=== PATIENT | female | born 1950 | race Caucasian/White ===

== ENCOUNTER 2023-10-27 14:20 | Emergency (ER) | payer MEDICARE, MEDICAID, SELFPAY ==
[2023-10-27] VITALS (9 sets, daily range): BP systolic 128–140; BP diastolic 63–72; PULSE 68–79; RESP 14–18; TEMP 36.4; O2SAT 92–93; BMI 27.4
--- NOTE | 2023-10-27 14:50 | DI.RAD.S_ITS ---
PROCEDURE: XR ANKLE LT MIN 3V INDICATIONS: fall/ pain/ no deformity TECHNIQUE: 3 views of the ankle were acquired. COMPARISON: None. FINDINGS: Bones: Minimally displaced avulsion fracture of the distal fibular tip. Ankle mortise is normally aligned on nonweightbearing view. No suspicious bony lesions. Soft tissues: No tibiotalar joint effusion. Achilles tendon appears normal. Soft tissue swelling overlying the lateral malleolus. Vascular calcifications. Small plantar calcaneal enthesophyte. IMPRESSION: Minimally displaced avulsion fracture of the distal fibular tip with overlying soft tissue swelling. Dictated by: Fausto Jones M.D. on 10/27/2023 at 14:46 Approved by: Fausto Jones M.D. on 10/27/2023 at 14:47
--- NOTE | 2023-10-27 14:50 | DI.RAD.S_ITS ---
PROCEDURE: XR KNEE LT 3V INDICATIONS: fall/ pain/ no deformity TECHNIQUE: 3 views of the knee were acquired. COMPARISON: None. FINDINGS: Bones: No fractures or dislocations. Joint spaces are relatively maintained. No suspicious bony lesions. Normal patellar alignment on the sunrise view. Soft tissues: No joint effusion. No suspicious soft tissue calcifications. IMPRESSION: No acute bony abnormality or significant effusion. If clinical symptoms persist, consider repeat radiograph in 10-14 days versus cross-sectional imaging. Dictated by: Fausto Jones M.D. on 10/27/2023 at 14:47 Approved by: Fausto Jones M.D. on 10/27/2023 at 14:48
--- NOTE | 2023-10-27 16:21 | ED_ITS ---
HPI - Extremity Injury (Lower) General Chief Complaint: Extremity Injury, Lower Stated Complaint: fall Time Seen by Provider: 10/27/23 16:21 Source: patient and EMS Mode of arrival: EMS (air) Limitations: no limitations History of Present Illness HPI Narrative: 72-year-old female history of coronary artery disease with cardiac stents, bipolar on lithium on aspirin daily. Patient was walking her grandson's dog wh en she stepped in a pothole everting her ankle. She was able to walk sort of hobbled over but has not had increasing swelling over the lateral malleolus and pain. Patient states little bit of tingling in her foot initially but that is improved. States she did fell onto her knees. States it was on grass denies any cuts or abrasions. Denies hitting her head no neck or back pain, no chest pain or shortness of breath no GI or urinary symptoms. Patient states she was transported by airlift her see fentanyl EN route. She does not wish to have any more narcotics. Patient she took a Tylenol 325 mg immediately afterwards. Patient has allergies to prednisone, sulfa. Denies surgeries besides prior cardiac stents. Patient lives on [address]. No regular tobacco, alcohol or recreational drugs. Related Data Home Medications Medication Instructions Recorded Confirmed cholecalciferol (vitamin D3) 25 1,000 iu PO Q DAY ##0 05/10/11 mcg (1,000 unit) tablet (Vitamin D3) ASPIRIN (Aspirin EC) 81 mg PO Q DAY ##0 11/22/11 Allergies Allergy/AdvReac Type Severity Reaction Status Date / Time prednisone Allergy Verified 10/27/23 14:31 Sulfa (Sulfonamide Allergy Verified 10/27/23 14:31 Antibiotics) antibiotics Allergy Uncoded 10/27/23 14:35 Review of Systems Review of Systems ROS Unobtainable: All systems reviewed & are unremarkable except as noted in HPI and below Patient History Social History Smoking Status: Never smoker Smoking Status: Never smoker Substance Use Type: does not use Exam Narrative Exam Narrative: GENERAL: Alert and oriented x three, female in mild distress HEENT: Head normocephalic, atraumatic, EOMI, pupils reactive, face symmetric, moist mucous membranes NECK: Supple, full range of motion CARDIOVASCULAR: Regular rate and rhythm without murmurs, rubs or gallops. RESPIRATORY: Breath sounds equal bilaterally, no wheezes rales or rhonchi. ABDOMEN: Soft, nontender. Normoactive bowel sounds all 4 quadrants. No guarding or rebound, rigidity, no mass : No CVA tenderness EXTREMITIES: Normal range of motion with the exception of left ankle patient has swelling over the lateral malleolus as well as tenderness. There is a small amount of ecchymosis. Patient does not have any tenderness over the medial malleolus no tenderness over the foot calcaneus or toes. Nontender over the proximal leg or knee. Patient has good range of motion of the knee as well as toes. Can flex extend but is uncomfortable at the ankle. No obvious joint laxity. 2+ dorsalis pedis. Cap refill less than 2 seconds in all 5 toes. NEUROLOGICAL: Cranial nerves II through XII grossly intact. Moving all extremities SKIN: Warm, dry, no petechiae, no rashes or lesions. Initial Vital Signs Initial Vital Signs: Vital Signs Blood Pressure 140/72 10/27/23 14:25 Course Orders Ordered: ED Orders 10/27/23 14:50 XR ankle LT min 3V Stat XR knee LT 3V Stat Discontinued Medications Acetaminophen (Acetaminophen 325 Mg Tablet) 325 mg PO NOW ONE Stop: 10/27/23 16:40 Last Admin: 10/27/23 16:51 Dose: 325 mg Documented By: SB Vital Signs Vital signs: Vital Signs - 8 hr 10/27/23 14:25 10/27/23 14:26 10/27/23 14:30 Temperature Pulse Rate 69 72 Respiratory Rate Blood Pressure 140/72 Pulse Oximetry 92 92 Oxygen Delivery Method 10/27/23 14:30 10/27/23 14:31 10/27/23 15:00 Temperature 97.6 F Pulse Rate 68 78 Respiratory Rate 18 Blood Pressure 128/63 140/72 Pulse Oximetry 93 92 Oxygen Delivery Method Room Air 10/27/23 15:30 10/27/23 16:00 10/27/23 16:30 Temperature Pulse Rate 71 79 74 Respiratory Rate Blood Pressure Pulse Oximetry 93 93 93 Oxygen Delivery Method 10/27/23 17:03 Temperature Pulse Rate 78 Respiratory Rate 14 Blood Pressure 136/72 Pulse Oximetry 92 Oxygen Delivery Method Room Air MDM - Extremity Injury (Lower) Imaging Data Extremity x-ray #1: Radiologist's Impression: Ana Rm??72??F??1950 ? Allergy/Adv: prednisone, Sulfa (Sulfonamide Antibiotics), [antibiotics] (More??) Close Knee X-Ray (Signed) Fausto Jones - 10/27/23 Ankle X-Ray (Signed) Fausto Jones - 10/27/23 Launch?[address] [address] XRay Report Signed Patient: Ana Rm MR#: [id number] : 1950 Acct:[id number] Age/Sex: 72 / F Date of Service: 10/27/23 Loc: ED Accession Number: [id number] Procedure: XR ankle LT min 3V Ordering Provider: Patito Lilly D.O. PROCEDURE: XR ANKLE LT MIN 3V INDICATIONS: fall/ pain/ no deformity TECHNIQUE: 3 views of the ankle were acquired. COMPARISON: None. FINDINGS: Bones: Minimally displaced avulsion fracture of the distal fibular tip. Ankle mortise is normally aligned on nonweightbearing view. No suspicious bony lesions. Soft tissues: No tibiotalar joint effusion. Achilles tendon appears normal. Soft tissue swelling overlying the lateral malleolus. Vascular calcifications. Small plantar calcaneal enthesophyte. IMPRESSION: Minimally displaced avulsion fracture of the distal fibular tip with overlying soft tissue swelling. Dictated by: Fausto Jones M.D. on 10/27/2023 at 14:46 Approved by: Fausto Jones M.D. on 10/27/2023 at 14:47 Extremity x-ray #2: Radiologist's Impression: Ana Rm??72??F??1950 ? Allergy/Adv: prednisone, Sulfa (Sulfonamide Antibiotics), [antibiotics] (More??) Close Knee X-Ray (Signed) Fausot Jones - 10/27/23 Ankle X-Ray (Signed) Fausto Jones - 10/27/23 Launch?[address] [address] XRay Report Signed Patient: Ana Rm MR#: [id number] : 1950 Acct:[id number] Age/Sex: 72 / F Date of Service: 10/27/23 Loc: ED Accession Number: [id number] Procedure: XR knee LT 3V Ordering Provider: Patito Lilly D.O. PROCEDURE: XR KNEE LT 3V INDICATIONS: fall/ pain/ no deformity TECHNIQUE: 3 views of the knee were acquired. COMPARISON: None. FINDINGS: Bones: No fractures or dislocations. Joint spaces are relatively maintained. No suspicious bony lesions. Normal patellar alignment on the sunrise view. Soft tissues: No joint effusion. No suspicious soft tissue calcifications. IMPRESSION: No acute bony abnormality or significant effusion. If clinical symptoms persist, consider repeat radiograph in 10-14 days versus cross-sectional imaging. Dictated by: Fausto Jones M.D. on 10/27/2023 at 14:47 Approved by: Fausto Jones M.D. on 10/27/2023 at 14:48 [facility] Narrative Medical decision making narrative: 72-year-old female with eversion injury, tenderness over the lateral malleolus with swelling and discomfort with weight-bearing. Patient meets [place] ankle rules for x-ray imaging. Patient describes some pain in the knee but is nontender on examination. X-ray of the knee shows no acute change. X-ray of the ankle shows minimally displaced avulsion fracture of the distal fibular tip ankle mortise aligned normally on nonweightbearing view no suspicious bony lesions. Small plantar calcaneal enthesophyte, vascular calcification there is soft tissue swelling over the lateral malleolus. Patient placed in orthopedic boot, toe-touch weight-bearing as tolerated with plan for follow up with Orthopedic surgery. Patient lives on [address] so discussed can start with follow up with primary care as this maybe easier to access initially. Patient would like to avoid narcotics. Given additional dose of Tylenol here. Discharge Plan Departure Patient Disposition: Home Clinical Impression: Avulsion fracture of distal fibula Instructions: DI for Ankle Fracture Activity Restrictions/Additional Instructions: Follow up with the Orthopedic surgery in the next 7-10 days. You can start follow up with your primary care physician if this is easier to access living on [address] initially. Contact is included below for Orthopedic surgery. You may toe-touch weightbear as tolerated. Use walker as needed. You can take Tylenol up to a 1000 mg every 6 hours as needed for pain. Splint Care: Keep splint clean and dry. Elevated affected body part to decrease swelling. OK to use ice pack on the affected body part. Use for 15-20 minutes each time, for 5-6x per day. If you develop worsening pain, numbness, tingling, discoloration of the affected body part, loosen the splint by loosening the LUIS wrap, and either see your doctor for an urgent re-assessment, or return to the Emergency Department. Return to the Emergency Department for any new or worsening symptoms. Prescriptions: No Action cholecalciferol (vitamin D3) [Vitamin D3] 1,000 UNIT tablet 1,000 iu PO Q DAY Qty: 0 ASPIRIN (Aspirin EC) 81 mg PO Q DAY Qty: 0 Referrals: Lalita Jackson MD [Physician] - Stand Alone Forms: Patient Portal/API
[2023-10-27] MEDS: ACETAMINOPHEN 325 MG TABLET PO (16:51)
== END 2023-10-27 17:05 | disposition home or self-care (01) ==
PROVIDERS: Emergency Provider Emergency Medicine
DX: S82.62XA Displaced fracture of lateral malleolus of left fibula, initial encounter for closed fracture (principal); M25.562 Pain in left knee; X50.1XXA Overexertion from prolonged static or awkward postures, initial encounter
CPT/HCPCS: 73562; 73610; 99283